=== PATIENT | male | born 1960 | race Caucasian/White ===

== ENCOUNTER 2022-09-18 15:47 | Inpatient (IN) | payer OTHER, SELFPAY ==
[2022-09-18 16:30] VITALS: BP 165/77; PULSE 84; RESP 18; TEMP 36.7; O2SAT 99; BMI 39.1
[2022-09-18 17:01] LABS: Glucose, Whole Blood 224 mg/dL (60-115)
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
[2022-09-18 20:08] LABS: Glucose, Whole Blood 232 mg/dL (60-115)
[2022-09-18] MEDS: oxyCODONE HCl Immed Release 5 MG TABLET 10 MG PO (20:22)
[2022-09-18] MEDS: Dextroamphetamine/Amphetamine XR 10 MG CAP.ER.24H 30 MG PO (20:22)
[2022-09-18] MEDS: clonazePAM 1 MG TABLET PO (20:23)
[2022-09-18] MEDS: Gabapentin 400 MG CAPSULE 800 MG PO (20:23)
[2022-09-18] MEDS: DULoxetine HCl 60 MG CAPSULE.DR PO (20:23)
[2022-09-18] MEDS: Insulin Glargine,Hum.rec.anlog 100 UNIT/ML 10 ML VIAL 47 UNIT SUBCUT (20:25)
[2022-09-19] MEDS: oxyCODONE HCl Immed Release 5 MG TABLET 10 MG PO ×6 (00:36→22:09)
[2022-09-19 08:00] VITALS: BP 145/78; PULSE 83; RESP 18; TEMP 36.2; O2SAT 95
[2022-09-19 08:48] LABS: Alanine Aminotransferase 21 U/L (0-40); Albumin Level 3.7 g/dL (3.5-5.0); Alkaline Phosphatase 105 U/L (39-117); Anion Gap 12 (12-20); Aspartate Amino Transferase 14 U/L (5-37); Bilirubin Total 0.9 mg/dL (0.0-1.0); Blood Urea Nitrogen 12 mg/dL (9-16); Calcium 9.3 mg/dL (8.4-10.2); Carbon Dioxide 29 mmol/L (22-29); Chloride 103 mmol/L (96-108); Cholesterol 189 mg/dL; Creatinine Clr Calc Pharmacy 125.6; Estimated Glomerular Filt Rate > 60; Glucose Fasting 151 mg/dL (60-99); HDL Cholesterol 36 mg/dL; LDL Cholesterol Calculated 139 mg/dl; Potassium 4.2 mmol/L (3.3-5.1); Sodium 140 mmol/L (135-145); Total Protein 7.2 g/dL (6.5-8.0); Triglycerides 73 mg/dL
[2022-09-19] MEDS: Insulin Lispro 100 UNIT/ML 3 ML VIAL 16 UNIT SUBCUT ×3 (09:50→17:30)
[2022-09-19] MEDS: Insulin Glargine,Hum.rec.anlog 100 UNIT/ML 10 ML VIAL 47 UNIT SUBCUT ×2 (09:51→20:53)
[2022-09-19] MEDS: amLODIPine Besylate 10 MG TABLET PO (09:52)
[2022-09-19] MEDS: Dextroamphetamine/Amphetamine XR 10 MG CAP.ER.24H 30 MG PO (09:52)
[2022-09-19] MEDS: Gabapentin 400 MG CAPSULE 800 MG PO ×3 (09:52→20:54)
[2022-09-19] MEDS: lisinopriL 40 MG TABLET PO (09:52)
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
[2022-09-19] MEDS: clonazePAM 1 MG TABLET PO ×3 (11:26→20:55)
[2022-09-19] MEDS: Lidocaine 4 % Patch ADH..PATCH 2 PATCH TRANSDERMA (13:29)
[2022-09-19] MEDS: Acetaminophen 325 MG TABLET 650 MG PO ×3 (13:30→20:55)
--- NOTE | 2022-09-19 13:53 | HO.PM.IMCN ---
History of Present Illness Data of Consult Service Date: 09/19/22 Requesting physician: Zuleika Traylor Primary Care Provider: Unknown Physician HPI Reason for consult: medical H&P 62-year-old male with history hypertension, hyperlipidemia, insulin-dependent type 2 diabetes, diabetic polyneuropathy, osteoarthritis of the hips bilaterally, history of MRSA admitted to Psychiatry with consult placed to Hospital Medicine for medical H and P. He is reporting pain of the hips and knees bilaterally. He tells me he did have a fall down the stairs 2 weeks ago and fractured a rib and hit his face losing several teeth. He did have head CT performed which was negative per the patient and he did not lose consciousness. He is no other completely this time outside of his pain. Denies any alcohol use, illicit drug use, or cigarette smoking. Review of Systems Review of Systems: General: No fevers, malaise, unintentional weight loss HEENT: No blurred vision, diplopia. No sore throat, nasal congestion, rhinorrhea, sinus pain, ear pain Cardiovascular: No chest pain, palpitations, or leg edema Respiratory: No shortness of breath, wheezing, cough GI: No abdominal pain, nausea, vomiting, diarrhea, constipation, melena, hematochezia : No dysuria, hematuria, increased urinary frequency, decreased urinary output MSK: No myalgia, back pain. +pain b/l hips and knees Neuro: No headaches, weakness, paresthesias Skin: No rashes or lesions [facility] Medical History Diabetic polyneuropathy Hyperlipidemia Hypertension Insulin dependent type 2 diabetes mellitus Major depressive disorder Osteoarthritis of knees, bilateral Osteoarthritis, hip, bilateral Social History Household Members: Other Household Members Other:: Lives with 2 roommates Housing: Apartment Do you presently have visiting nurse or other home services: No Patient Tobacco Use Status: Never used Tobacco Use of substances other than those prescribed or required for medical reasons: Yes Substance Use Type: Marijuana Substance Use Type Other:: reports 2-3 puffs for chronic pain Substance Use Frequency: Occasionally Currently Displaying Signs/Symptoms of Drug Intoxication Withdrawal: No Any prior treatment program specific to substance use: No Advance Directives: No Advance Directives Information Provided: No Do you have thoughts of harming others: None Do you have a plan to hurt others: No Plan Recently lost weight without trying: No How much weight loss: Not applicable Eating poorly because of decreased appetite: No Nutrition screen score: 0 Nutrition Risks: No Nutritional Risk Poor oral hygiene: No Meds Allergies Allergy/AdvReac Type Severity Reaction Status Date / Time aspirin Allergy Unknown Verified 09/18/22 17:35 chlordiazepoxide Allergy Unknown Verified 09/18/22 17:35 hydrochlorothiazide Allergy Unknown Verified 09/18/22 17:35 latex Allergy Unknown Verified 09/18/22 17:35 NSAIDS (Non-Steroidal Allergy Unknown Verified 09/18/22 17:35 Anti-Inflamma shellfish derived Allergy Unknown Verified 09/18/22 17:35 tramadol Allergy Unknown Verified 09/18/22 17:35 Active Medications: Current Medications Acetaminophen (Acetaminophen 325 Mg Tablet) 650 mg PO QID [facility] Last Admin: 09/19/22 13:30 Dose: 650 mg Al Hydroxide/Mg Hydroxide (Magnesium Hydrox/Alum Hydrox 30 Ml Oral.Susp) 30 ml PO Q6H PRN PRN Reason: Heartburn/Nausea Amlodipine Besylate (Amlodipine Besylate 10 Mg Tablet) 10 mg PO DAILY [facility]; Protocol Last Admin: 09/19/22 09:52 Dose: 10 mg Amphetamine/Dextroamphetamine (Amphetamine Mixed Salts 10 Mg Tablet) 30 mg PO BID@0800,1400 [facility] Clonazepam (Clonazepam 1 Mg Tablet) 1 mg PO TID PRN PRN Reason: Anxiety Last Admin: 09/19/22 11:26 Dose: 1 mg Dextrose (Dextrose 50 % 25 Gm/50 Ml Syringe) 25 gm IVPUSH Q15M PRN; Protocol PRN Reason: per Hypoglycemia Standing Ord. Duloxetine HCl (Duloxetine Hcl 30 Mg Capsule.Dr) 90 mg PO BEDTIME ZAKIA Gabapentin (Gabapentin 400 Mg Capsule) 800 mg PO TID [facility] Last Admin: 09/19/22 09:52 Dose: 800 mg Glucose (Glucose Gel 15 Gm Gel..Gram.) 15 gm PO Q15M PRN; Protocol PRN Reason: per Hypoglycemia Standing Ord. Hydroxyzine HCl (Hydroxyzine Hcl 25 Mg Tablet) 25 mg PO Q6H PRN PRN Reason: Anxiety Insulin Glargine (Insulin Glargine,Hum.Rec.Anlog 100 Unit/Ml 10 Ml Vial) 47 unit SUBCUT BID [facility] Last Admin: 09/19/22 09:51 Dose: 47 unit Insulin Human Lispro (Insulin Lispro 100 Unit/Ml 3 Ml Vial) 16 unit SUBCUT TID@0730,1130,1630 [facility] Last Admin: 09/19/22 12:47 Dose: Not Given Lidocaine (Lidocaine 4 % Patch Adh..Patch) 2 patch TRANSDERMA DAILY [facility]; Protocol Last Admin: 09/19/22 13:29 Dose: 2 patch Lisinopril (Lisinopril 40 Mg Tablet) 40 mg PO DAILY [facility]; Protocol Last Admin: 09/19/22 09:52 Dose: 40 mg Magnesium Hydroxide (Milk Of Magnesia 30 Ml Oral.Susp) 30 ml PO DAILY PRN PRN Reason: Constipation Oxycodone HCl (Oxycodone Hcl Immed Release 5 Mg Tablet) 10 mg PO Q4H PRN PRN Reason: Pain, Mild (Pain Scale 1-3) Last Admin: 09/19/22 09:49 Dose: 10 mg Trazodone HCl (Trazodone Hcl 50 Mg Tablet) 50 mg PO BEDTIME MRX1 PRN PRN Reason: Insomnia Home Medications Medication Instructions Recorded Confirmed Last Taken Type amlodipine 10 mg tablet 10 mg PO QAM 09/18/22 09/18/22 Unknown History clonazepam 1 mg tablet 1 mg PO TID PRN anxiety 09/18/22 09/18/22 Unknown History dextroamphetamine-amphetamine 30 1 tab PO BID 09/18/22 09/18/22 Unknown History mg tablet duloxetine 60 mg capsule,delayed 60 mg PO BEDTIME 09/18/22 09/18/22 Unknown History release gabapentin 400 mg capsule 800 mg PO TID 09/18/22 09/18/22 Unknown History insulin glargine 100 unit/mL (3 47 unit subcut BID 09/18/22 09/18/22 Unknown History mL) subcutaneous pen (Lantus Solostar U-100 Insulin) insulin lispro 100 unit/mL 16 unit subcut TID 09/18/22 09/18/22 Unknown History subcutaneous solution lisinopril 40 mg tablet 40 mg PO DAILY 09/18/22 09/18/22 Unknown History oxycodone 10 mg tablet 10 mg PO Q4H PRN pain 09/18/22 09/18/22 Unknown History Physical Exam Vital Signs and Narrative: Vital Signs: Last Vital Signs Temp 97.1 F 09/19/22 08:00 Pulse 83 09/19/22 08:00 Resp 18 09/19/22 08:00 BP 145/78 H 09/19/22 08:00 Pulse Ox 95 09/19/22 08:00 O2 Del Method Room Air 09/19/22 08:00 BMI result Body Mass Index 39.1 Constitutional - Awake and Alert, No apparent distress Eyes - PERRLA, EOMI Cardiovascular - S1S2, RRR, No edema Respiratory - Normal lung expansion, Normal respiratory effort, No respiratory distress, CTA bilaterally Gastrointestinal - NT / ND; +BS; No rebound or guarding Extremities - no calf tenderness bilaterally, no swelling Musculoskeletal - Normal inspection, normal ROM Skin - Warm/Dry Neurological - Alert & oriented x3, CN II-XII in tact, 5/5 strength BUE and LLE, 3/5 strength RLE Psychological - Appropriate affect Results Labs 09/19/22 07:53 Labs: Laboratory Results - last 24 hr 09/18/22 09/18/22 09/19/22 16:57 20:05 07:43 Anion Gap Estim Creat Clear Calc Estimated GFR POC Glucose 224 H 232 H 162 H Fasting Glucose Calcium Total Bilirubin AST ALT Alkaline Phosphatase Total Protein Albumin Triglycerides Cholesterol LDL Cholesterol, Calc HDL Cholesterol 09/19/22 09/19/22 07:53 11:25 Anion Gap 12 Estim Creat Clear Calc 125.6 Estimated GFR > 60 POC Glucose 182 H Fasting Glucose 151 H Calcium 9.3 Total Bilirubin 0.9 AST 14 ALT 21 Alkaline Phosphatase 105 Total Protein 7.2 Albumin 3.7 Triglycerides 73 Cholesterol 189 LDL Cholesterol, Calc 139 HDL Cholesterol 36 Assessment and Plan (1) Routine medical exam: Status: Acute Plan 62-year-old male with history hypertension, hyperlipidemia, insulin-dependent type 2 diabetes, diabetic polyneuropathy, osteoarthritis of the hips bilaterally, history of MRSA admitted to Psychiatry with consult placed to Hospital Medicine for medical H and P. #MDD -plan per psychiatry #Osteoarthritis b/l knees, hips -tylenol prn, lidocaine patches prn -Continue home oxycodone -Outpt follow up as scheduled #Insulin dependent type 2 diabetes -Continue basal insulin, prandial insulin -POC glucose -Diabetic diet recommended #HTN -reasonably controlled -continue home meds #Diabetic polyneuropathy -continue gabapentin Thank you for allowing me to participate in this consult. Signing off at this time. Please do not hesitate to call for further questions. Time Spent With Patient Time: Total time managing care of this patient today ____ minutes.
[2022-09-19] MEDS: Amphetamine Mixed Salts 10 MG TABLET 30 MG PO (13:58)
[2022-09-19 18:00] VITALS: BP 152/72; PULSE 82; TEMP 36.2; O2SAT 96
[2022-09-19] MEDS: DULoxetine HCl 30 MG CAPSULE.DR 90 MG PO (20:54)
[2022-09-19] MEDS: diphenhydrAMINE HCL 25 MG CAPSULE 50 MG PO (20:55)
[2022-09-20] MEDS: oxyCODONE HCl Immed Release 5 MG TABLET 10 MG PO ×6 (02:04→22:52)
--- NOTE | 2022-09-20 08:53 | HO.PSYCHPN ---
Subjective Subjective Date of Service: 09/20/22 Reason For Visit: F33.2 /F12.20/F11.99/F13.99 Interim History: Pt to be seen by Dr. Ponce today. Diagnostics Vital Signs (24Hr): Vital Signs - 24 hr 09/19/22 18:00 Temperature 97.2 F Pulse Rate 82 Blood Pressure 152/72 H Pulse Oximetry 96 Oxygen Delivery Method Room Air BMI result Body Mass Index 39.1 Labs 09/19/22 07:53 Labs: Laboratory Results - last 48 hr 09/18/22 09/18/22 09/19/22 16:57 20:05 07:43 Sodium Potassium Chloride Carbon Dioxide Anion Gap BUN Creatinine Estim Creat Clear Calc Estimated GFR POC Glucose 224 H 232 H 162 H Fasting Glucose Calcium Total Bilirubin AST ALT Alkaline Phosphatase Total Protein Albumin Triglycerides Cholesterol LDL Cholesterol, Calc HDL Cholesterol 09/19/22 09/19/22 09/19/22 07:53 11:25 16:38 Sodium 140 Potassium 4.2 Chloride 103 Carbon Dioxide 29 Anion Gap 12 BUN 12 Creatinine 0.79 Estim Creat Clear Calc 125.6 Estimated GFR > 60 POC Glucose 182 H 185 H Fasting Glucose 151 H Calcium 9.3 Total Bilirubin 0.9 AST 14 ALT 21 Alkaline Phosphatase 105 Total Protein 7.2 Albumin 3.7 Triglycerides 73 Cholesterol 189 LDL Cholesterol, Calc 139 HDL Cholesterol 36 09/19/22 09/20/22 20:27 08:20 Sodium Potassium Chloride Carbon Dioxide Anion Gap BUN Creatinine Estim Creat Clear Calc Estimated GFR POC Glucose 222 H 188 H Fasting Glucose Calcium Total Bilirubin AST ALT Alkaline Phosphatase Total Protein Albumin Triglycerides Cholesterol LDL Cholesterol, Calc HDL Cholesterol Medications Medications Current Medications Acetaminophen (Acetaminophen 325 Mg Tablet) 650 mg PO QID [facility] Last Admin: 09/19/22 20:55 Dose: 650 mg Al Hydroxide/Mg Hydroxide (Magnesium Hydrox/Alum Hydrox 30 Ml Oral.Susp) 30 ml PO Q6H PRN PRN Reason: Heartburn/Nausea Amlodipine Besylate (Amlodipine Besylate 10 Mg Tablet) 10 mg PO DAILY [facility]; Protocol Last Admin: 09/19/22 09:52 Dose: 10 mg Amphetamine/Dextroamphetamine (Amphetamine Mixed Salts 10 Mg Tablet) 30 mg PO BID@0800,1400 [facility] Last Admin: 09/19/22 13:58 Dose: 30 mg Clonazepam (Clonazepam 1 Mg Tablet) 1 mg PO TID PRN PRN Reason: Anxiety Last Admin: 09/19/22 20:55 Dose: 1 mg Dextrose (Dextrose 50 % 25 Gm/50 Ml Syringe) 25 gm IVPUSH Q15M PRN; Protocol PRN Reason: per Hypoglycemia Standing Ord. Diphenhydramine HCl (Diphenhydramine Hcl 25 Mg Capsule) 50 mg PO BEDTIME [facility] Last Admin: 09/19/22 20:55 Dose: 50 mg Duloxetine HCl (Duloxetine Hcl 30 Mg Capsule.Dr) 90 mg PO BEDTIME [facility] Last Admin: 09/19/22 20:54 Dose: 90 mg Gabapentin (Gabapentin 400 Mg Capsule) 800 mg PO TID [facility] Last Admin: 09/19/22 20:54 Dose: 800 mg Glucose (Glucose Gel 15 Gm Gel..Gram.) 15 gm PO Q15M PRN; Protocol PRN Reason: per Hypoglycemia Standing Ord. Hydroxyzine HCl (Hydroxyzine Hcl 25 Mg Tablet) 25 mg PO Q6H PRN PRN Reason: Anxiety Insulin Glargine (Insulin Glargine,Hum.Rec.Anlog 100 Unit/Ml 10 Ml Vial) 47 unit SUBCUT BID [facility] Last Admin: 09/19/22 20:53 Dose: 47 unit Insulin Human Lispro (Insulin Lispro 100 Unit/Ml 3 Ml Vial) 16 unit SUBCUT TID@0730,1130,1630 [facility] Last Admin: 09/19/22 17:30 Dose: 16 unit Lidocaine (Lidocaine 4 % Patch Adh..Patch) 2 patch TRANSDERMA DAILY [facility]; Protocol Last Admin: 09/19/22 13:29 Dose: 2 patch Lisinopril (Lisinopril 40 Mg Tablet) 40 mg PO DAILY [facility]; Protocol Last Admin: 09/19/22 09:52 Dose: 40 mg Magnesium Hydroxide (Milk Of Magnesia 30 Ml Oral.Susp) 30 ml PO DAILY PRN PRN Reason: Constipation Oxycodone HCl (Oxycodone Hcl Immed Release 5 Mg Tablet) 10 mg PO Q4H PRN PRN Reason: Pain, Mild (Pain Scale 1-3) Last Admin: 09/20/22 07:00 Dose: 10 mg Trazodone HCl (Trazodone Hcl 50 Mg Tablet) 50 mg PO BEDTIME MRX1 PRN PRN Reason: Insomnia Allergies Allergies Allergy/AdvReac Type Severity Reaction Status Date / Time aspirin Allergy Unknown Verified 09/18/22 17:35 chlordiazepoxide Allergy Unknown Verified 09/18/22 17:35 hydrochlorothiazide Allergy Unknown Verified 09/18/22 17:35 latex Allergy Unknown Verified 09/18/22 17:35 NSAIDS (Non-Steroidal Allergy Unknown Verified 09/18/22 17:35 Anti-Inflamma shellfish derived Allergy Unknown Verified 09/18/22 17:35 tramadol Allergy Unknown Verified 09/18/22 17:35 Assessment & Plan Assessment & Plan (1) Major depressive disorder: Status: Acute Code(s): F32.9 - Major depressive disorder, single episode, unspecified (2) PTSD (post-traumatic stress disorder): Status: Acute Code(s): F43.10 - Post-traumatic stress disorder, unspecified (3) Routine medical exam: Status: Acute Code(s): Z00.00 - Encounter for general adult medical examination without abnormal findings Plan Overall presents with major depressive disorder and PTSD. Also comorbid insulin-dependent diabetes. Significant suicide gestures recently, all be that on 09/05/2022 having spent the last 2 weeks in [facility] ED pending inpatient psych bed. Reports has been some improvement in depression with Cymbalta 60 mg. That being said will increase to 90 mg as still appears depressed with some psychomotor retardation. If there continues to be concerns regarding depression, psychomotor retardation or suicidality may be appropriate candidate for lithium or ECT. Patient is averse to both his treatment options. Will continue Klonopin, gabapentin, Adderall and oxycodone as per [facility] and transfer paperwork. Benadryl at nighttime for sleep. Will also place Pt consult regarding mobility and potential walking aids. Will also order lidocaine patch for right hip and right groin area which are his main sources of pain and also scheduled Tylenol which he takes at home and finds this helpful. Reports having right hip replacement surgery schedule 10/07/2022 and looking forward to same. Reason for continued inpatient stay Substantial Risk for: harm to self Time Spent With Patient Time: Total time managing care of this patient today ____ minutes.
[2022-09-20] MEDS: Insulin Glargine,Hum.rec.anlog 100 UNIT/ML 10 ML VIAL 47 UNIT SUBCUT ×2 (08:59→20:11)
[2022-09-20] MEDS: clonazePAM 1 MG TABLET PO ×3 (09:00→22:05)
[2022-09-20] MEDS: lisinopriL 40 MG TABLET PO (09:00)
[2022-09-20] MEDS: Gabapentin 400 MG CAPSULE 800 MG PO ×3 (09:00→20:08)
[2022-09-20] MEDS: Acetaminophen 325 MG TABLET 650 MG PO ×4 (09:01→20:08)
[2022-09-20] MEDS: Amphetamine Mixed Salts 10 MG TABLET 30 MG PO ×2 (09:01→13:34)
[2022-09-20] MEDS: amLODIPine Besylate 10 MG TABLET PO (09:01)
[2022-09-20 09:06] VITALS: BP 160/77; PULSE 90; RESP 18; TEMP 36.9
[2022-09-20] MEDS: Lidocaine 4 % Patch ADH..PATCH 2 PATCH TRANSDERMA (11:01)
--- NOTE | 2022-09-20 12:17 | HO.PSYCHPN ---
Subjective Subjective Date of Service: 09/20/22 Reason For Visit: F33.2 /F12.20/F11.99/F13.99 Subjective Notes: Conditional Voluntary Interim History: Met with patient. Discussed with Nursing. 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 Since then transferred to the general adult unit. This was in the context of his age, cognitive functioning and also the geriatric unit reminding him of visiting his mom and in inpatient settings. Today he reports feeling more comfortable on the general adult unit. Slept very well last night. Pain slightly better. Yesterday was difficult also because it was his girlfriend's birthday. Continues to deny SI. We discussed blood sugar management and blood sugar levels yesterday and this morning was in 180s after breakfast and did not receive scheduled insulin at mealtimes. We therefore discussed discontinuing scheduled mealtime insulins and utilizing sliding scale and figuring out insulin needs from same. Patient felt more comfortable with this plan. Medication Compliance: Yes Side effects from medications: No Attending Groups: Intermittent Review of Systems Acute medical concerns: No Review of Systems Review of Systems Pain under better control. Will adjust insulin Mental Status Exam Mental Status Exam Narrative: Pleasant. Engaged. Appropriately dressed. slightly less painful gait. Alert and oriented. There is psychomotor retardation evident. Endorses depression. Denies SI. Denies HI. No psychosis. Insight and judgment fair Diagnostics Vital Signs (24Hr): Vital Signs - 24 hr 09/19/22 18:00 09/20/22 09:06 Temperature 97.2 F 98.5 F Pulse Rate 82 90 Respiratory Rate 18 Blood Pressure 152/72 H 160/77 H Pulse Oximetry 96 Oxygen Delivery Method Room Air Room Air BMI result Body Mass Index 39.1 Labs 09/19/22 07:53 Labs: Laboratory Results - last 48 hr 09/18/22 09/18/22 09/19/22 16:57 20:05 07:43 Sodium Potassium Chloride Carbon Dioxide Anion Gap BUN Creatinine Estim Creat Clear Calc Estimated GFR POC Glucose 224 H 232 H 162 H Fasting Glucose Calcium Total Bilirubin AST ALT Alkaline Phosphatase Total Protein Albumin Triglycerides Cholesterol LDL Cholesterol, Calc HDL Cholesterol 09/19/22 09/19/22 09/19/22 07:53 11:25 16:38 Sodium 140 Potassium 4.2 Chloride 103 Carbon Dioxide 29 Anion Gap 12 BUN 12 Creatinine 0.79 Estim Creat Clear Calc 125.6 Estimated GFR > 60 POC Glucose 182 H 185 H Fasting Glucose 151 H Calcium 9.3 Total Bilirubin 0.9 AST 14 ALT 21 Alkaline Phosphatase 105 Total Protein 7.2 Albumin 3.7 Triglycerides 73 Cholesterol 189 LDL Cholesterol, Calc 139 HDL Cholesterol 36 09/19/22 09/20/22 09/20/22 20:27 08:20 11:33 Sodium Potassium Chloride Carbon Dioxide Anion Gap BUN Creatinine Estim Creat Clear Calc Estimated GFR POC Glucose 222 H 188 H 289 H Fasting Glucose Calcium Total Bilirubin AST ALT Alkaline Phosphatase Total Protein Albumin Triglycerides Cholesterol LDL Cholesterol, Calc HDL Cholesterol Medications Medications Current Medications Acetaminophen (Acetaminophen 325 Mg Tablet) 650 mg PO QID [facility] Last Admin: 09/20/22 09:01 Dose: 650 mg Al Hydroxide/Mg Hydroxide (Magnesium Hydrox/Alum Hydrox 30 Ml Oral.Susp) 30 ml PO Q6H PRN PRN Reason: Heartburn/Nausea Amlodipine Besylate (Amlodipine Besylate 10 Mg Tablet) 10 mg PO DAILY [facility]; Protocol Last Admin: 09/20/22 09:01 Dose: 10 mg Amphetamine/Dextroamphetamine (Amphetamine Mixed Salts 10 Mg Tablet) 30 mg PO BID@0800,1400 [facility] Last Admin: 09/20/22 09:01 Dose: 30 mg Clonazepam (Clonazepam 1 Mg Tablet) 1 mg PO TID PRN PRN Reason: Anxiety Last Admin: 09/20/22 09:00 Dose: 1 mg Dextrose (Dextrose 50 % 25 Gm/50 Ml Syringe) 25 gm IVPUSH Q15M PRN; Protocol PRN Reason: per Hypoglycemia Standing Ord. Diphenhydramine HCl (Diphenhydramine Hcl 25 Mg Capsule) 50 mg PO BEDTIME [facility] Last Admin: 09/19/22 20:55 Dose: 50 mg Duloxetine HCl (Duloxetine Hcl 30 Mg Capsule.Dr) 90 mg PO BEDTIME [facility] Last Admin: 09/19/22 20:54 Dose: 90 mg Gabapentin (Gabapentin 400 Mg Capsule) 800 mg PO TID [facility] Last Admin: 09/20/22 09:00 Dose: 800 mg Glucose (Glucose Gel 15 Gm Gel..Gram.) 15 gm PO Q15M PRN; Protocol PRN Reason: per Hypoglycemia Standing Ord. Hydroxyzine HCl (Hydroxyzine Hcl 25 Mg Tablet) 25 mg PO Q6H PRN PRN Reason: Anxiety Insulin Glargine (Insulin Glargine,Hum.Rec.Anlog 100 Unit/Ml 10 Ml Vial) 47 unit SUBCUT BID [facility] Last Admin: 09/20/22 08:59 Dose: 47 unit Insulin Human Lispro (Insulin Lispro 100 Unit/Ml 3 Ml Vial) 16 unit SUBCUT TID@0730,1130,1630 [facility] Last Admin: 09/19/22 17:30 Dose: 16 unit Lidocaine (Lidocaine 4 % Patch Adh..Patch) 2 patch TRANSDERMA DAILY [facility]; Protocol Last Admin: 09/20/22 11:01 Dose: 2 patch Lisinopril (Lisinopril 40 Mg Tablet) 40 mg PO DAILY [facility]; Protocol Last Admin: 09/20/22 09:00 Dose: 40 mg Magnesium Hydroxide (Milk Of Magnesia 30 Ml Oral.Susp) 30 ml PO DAILY PRN PRN Reason: Constipation Oxycodone HCl (Oxycodone Hcl Immed Release 5 Mg Tablet) 10 mg PO Q4H PRN PRN Reason: Pain, Mild (Pain Scale 1-3) Last Admin: 09/20/22 11:02 Dose: 10 mg Trazodone HCl (Trazodone Hcl 50 Mg Tablet) 50 mg PO BEDTIME MRX1 PRN PRN Reason: Insomnia Allergies Allergies Allergy/AdvReac Type Severity Reaction Status Date / Time aspirin Allergy Unknown Verified 09/18/22 17:35 chlordiazepoxide Allergy Unknown Verified 09/18/22 17:35 hydrochlorothiazide Allergy Unknown Verified 09/18/22 17:35 latex Allergy Unknown Verified 09/18/22 17:35 NSAIDS (Non-Steroidal Allergy Unknown Verified 09/18/22 17:35 Anti-Inflamma shellfish derived Allergy Unknown Verified 09/18/22 17:35 tramadol Allergy Unknown Verified 09/18/22 17:35 Assessment & Plan Assessment & Plan (1) Major depressive disorder: Status: Acute Code(s): F32.9 - Major depressive disorder, single episode, unspecified (2) PTSD (post-traumatic stress disorder): Status: Acute Code(s): F43.10 - Post-traumatic stress disorder, unspecified (3) Routine medical exam: Status: Acute Code(s): Z00.00 - Encounter for general adult medical examination without abnormal findings Plan Overall presents with major depressive disorder and PTSD. Also comorbid insulin-dependent diabetes. Significant suicide gestures recently, all be that on 09/05/2022 having spent the last 2 weeks in [facility] ED pending inpatient psych bed. Reports has been some improvement in depression with Cymbalta 60 mg. That being said will increase to 90 mg as still appears depressed with some psychomotor retardation. If there continues to be concerns regarding depression, psychomotor retardation or suicidality may be appropriate candidate for lithium or ECT. Patient is averse to both his treatment options. Will continue Klonopin, gabapentin, Adderall and oxycodone as per [facility] and transfer paperwork. Benadryl at nighttime for sleep. Will also place Pt consult regarding mobility and potential walking aids. Will also order lidocaine patch for right hip and right groin area which are his main sources of pain and also scheduled Tylenol which he takes at home and finds this helpful. Reports having right hip replacement surgery schedule 10/07/2022 and looking forward to same. 09/20/22: change mealtime insulin to sliding scale rather than scheduled. Reason for continued inpatient stay Substantial Risk for: harm to self Time Spent With Patient Time: Total time managing care of this patient today ____ minutes.
[2022-09-20 18:00] VITALS: BP 148/78; PULSE 68; RESP 18; TEMP 36.6; O2SAT 97
[2022-09-20] MEDS: DULoxetine HCl 30 MG CAPSULE.DR 90 MG PO (20:08)
[2022-09-20] MEDS: diphenhydrAMINE HCL 25 MG CAPSULE 50 MG PO (22:15)
[2022-09-21] MEDS: oxyCODONE HCl Immed Release 5 MG TABLET 10 MG PO ×5 (03:19→20:44)
[2022-09-21 08:05] VITALS: BP 170/87; PULSE 73; RESP 16; TEMP 35.9; O2SAT 96
[2022-09-21] MEDS: Lidocaine 4 % Patch ADH..PATCH 2 PATCH TRANSDERMA (08:12)
[2022-09-21] MEDS: Insulin Glargine,Hum.rec.anlog 100 UNIT/ML 10 ML VIAL 47 UNIT SUBCUT ×2 (08:14→20:43)
[2022-09-21] MEDS: clonazePAM 1 MG TABLET PO ×3 (08:16→20:43)
[2022-09-21] MEDS: Acetaminophen 325 MG TABLET 650 MG PO ×4 (08:16→20:42)
[2022-09-21] MEDS: amLODIPine Besylate 10 MG TABLET PO (08:16)
[2022-09-21] MEDS: Gabapentin 400 MG CAPSULE 800 MG PO ×3 (08:16→20:43)
[2022-09-21] MEDS: lisinopriL 40 MG TABLET PO (08:16)
[2022-09-21] MEDS: Amphetamine Mixed Salts 10 MG TABLET 30 MG PO ×2 (08:16→13:17)
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
[2022-09-21 15:31] VITALS: BP 170/87; PULSE 73; O2SAT 96
[2022-09-21 17:56] VITALS: BP 152/71; PULSE 85; TEMP 36
[2022-09-21] MEDS: DULoxetine HCl 30 MG CAPSULE.DR 90 MG PO (20:43)
[2022-09-21] MEDS: diphenhydrAMINE HCL 25 MG CAPSULE 50 MG PO (21:20)
[2022-09-22] MEDS: oxyCODONE HCl Immed Release 5 MG TABLET 10 MG PO ×6 (00:40→23:02)
[2022-09-22] MEDS: lisinopriL 40 MG TABLET PO (08:35)
[2022-09-22] MEDS: amLODIPine Besylate 10 MG TABLET PO (08:35)
[2022-09-22] MEDS: Acetaminophen 325 MG TABLET 650 MG PO ×4 (08:35→20:40)
[2022-09-22] MEDS: clonazePAM 1 MG TABLET PO ×3 (08:35→23:02)
[2022-09-22] MEDS: Gabapentin 400 MG CAPSULE 800 MG PO ×3 (08:36→20:40)
[2022-09-22] MEDS: Insulin Glargine,Hum.rec.anlog 100 UNIT/ML 10 ML VIAL 47 UNIT SUBCUT ×2 (08:36→20:42)
[2022-09-22 09:16] VITALS: BP 130/60; PULSE 72; RESP 16; O2SAT 97
[2022-09-22] MEDS: Amphetamine Mixed Salts 10 MG TABLET 30 MG PO ×2 (10:48→13:20)
--- NOTE | 2022-09-22 11:45 | HO.PSYCHPN ---
Subjective Subjective Date of Service: 09/22/22 Reason For Visit: F33.2 /F12.20/F11.99/F13.99 Interim History: Met with pt and discussed with RN. Patient reports he has been feeling OK . He reports My depression is better and my pain is worse. Tolerating the increase in Cymbalta. Denies SI/HI. Denies AVH. Seen interacting in the dining area. Side effects from medications: No Review of Systems Review of Systems Pain under better control. Will adjust insulin Mental Status Exam Mental Status Exam Narrative: Pleasant. Engaged. Appropriately dressed. slightly less painful gait. Alert and oriented. There is psychomotor retardation evident. Endorses depression. Denies SI. Denies HI. No psychosis. Insight and judgment fair Diagnostics Vital Signs (24Hr): Vital Signs - 24 hr 09/21/22 15:31 09/21/22 17:56 09/22/22 09:16 Temperature 96.8 F Pulse Rate 73 85 72 Respiratory Rate 16 Blood Pressure 170/87 H 152/71 H 130/60 Pulse Oximetry 96 97 Oxygen Delivery Method Room Air BMI result Body Mass Index 39.1 Labs 09/19/22 07:53 Labs: Laboratory Results - last 48 hr 09/20/22 09/20/22 09/20/22 17:46 20:30 22:08 POC Glucose 222 H 306 H 339 H 09/21/22 09/21/22 09/21/22 07:54 11:49 16:41 POC Glucose 250 H 291 H 239 H 09/21/22 09/22/22 20:16 08:05 POC Glucose 158 H 224 H Medications Medications Current Medications Acetaminophen (Acetaminophen 325 Mg Tablet) 650 mg PO QID [facility] Last Admin: 09/22/22 08:35 Dose: 650 mg Al Hydroxide/Mg Hydroxide (Magnesium Hydrox/Alum Hydrox 30 Ml Oral.Susp) 30 ml PO Q6H PRN PRN Reason: Heartburn/Nausea Amlodipine Besylate (Amlodipine Besylate 10 Mg Tablet) 10 mg PO DAILY [facility]; Protocol Last Admin: 09/22/22 08:35 Dose: 10 mg Amphetamine/Dextroamphetamine (Amphetamine Mixed Salts 10 Mg Tablet) 30 mg PO BID@0800,1400 [facility] Last Admin: 09/22/22 10:48 Dose: 30 mg Clonazepam (Clonazepam 1 Mg Tablet) 1 mg PO TID PRN PRN Reason: Anxiety Last Admin: 09/22/22 08:35 Dose: 1 mg Dextrose (Dextrose 50 % 25 Gm/50 Ml Syringe) 25 gm IVPUSH Q15M PRN; Protocol PRN Reason: per Hypoglycemia Standing Ord. Dextrose (Dextrose 50 % 25 Gm/50 Ml Syringe) 25 gm IVPUSH Q15M PRN; Protocol PRN Reason: per Hypoglycemia Standing Ord. Diphenhydramine HCl (Diphenhydramine Hcl 25 Mg Capsule) 50 mg PO BEDTIME [facility] Last Admin: 09/21/22 21:20 Dose: 50 mg Duloxetine HCl (Duloxetine Hcl 30 Mg Capsule.Dr) 90 mg PO BEDTIME [facility] Last Admin: 09/21/22 20:43 Dose: 90 mg Gabapentin (Gabapentin 400 Mg Capsule) 800 mg PO TID [facility] Last Admin: 09/22/22 08:36 Dose: 800 mg Glucose (Glucose Gel 15 Gm Gel..Gram.) 15 gm PO Q15M PRN; Protocol PRN Reason: per Hypoglycemia Standing Ord. Hydroxyzine HCl (Hydroxyzine Hcl 25 Mg Tablet) 25 mg PO Q6H PRN PRN Reason: Anxiety Insulin Glargine (Insulin Glargine,Hum.Rec.Anlog 100 Unit/Ml 10 Ml Vial) 47 unit SUBCUT BID [facility] Last Admin: 09/22/22 08:36 Dose: 47 unit Insulin Human Lispro (Insulin Lispro 100 Unit/Ml 3 Ml Vial) 12 unit SUBCUT TIDAC [facility] Last Admin: 09/22/22 08:36 Dose: 12 unit Lidocaine (Lidocaine 4 % Patch Adh..Patch) 2 patch TRANSDERMA DAILY [facility]; Protocol Last Admin: 09/21/22 08:12 Dose: 2 patch Lisinopril (Lisinopril 40 Mg Tablet) 40 mg PO DAILY [facility]; Protocol Last Admin: 09/22/22 08:35 Dose: 40 mg Magnesium Hydroxide (Milk Of Magnesia 30 Ml Oral.Susp) 30 ml PO DAILY PRN PRN Reason: Constipation Oxycodone HCl (Oxycodone Hcl Immed Release 5 Mg Tablet) 10 mg PO Q4H PRN PRN Reason: Pain, Mild (Pain Scale 1-3) Last Admin: 09/22/22 10:48 Dose: 10 mg Trazodone HCl (Trazodone Hcl 50 Mg Tablet) 50 mg PO BEDTIME MRX1 PRN PRN Reason: Insomnia Allergies Allergies Allergy/AdvReac Type Severity Reaction Status Date / Time aspirin Allergy Unknown Verified 09/18/22 17:35 chlordiazepoxide Allergy Unknown Verified 09/18/22 17:35 hydrochlorothiazide Allergy Unknown Verified 09/18/22 17:35 latex Allergy Unknown Verified 09/18/22 17:35 NSAIDS (Non-Steroidal Allergy Unknown Verified 09/18/22 17:35 Anti-Inflamma shellfish derived Allergy Unknown Verified 09/18/22 17:35 tramadol Allergy Unknown Verified 09/18/22 17:35 Assessment & Plan Assessment & Plan (1) Major depressive disorder: Status: Acute Code(s): F32.9 - Major depressive disorder, single episode, unspecified (2) PTSD (post-traumatic stress disorder): Status: Acute Code(s): F43.10 - Post-traumatic stress disorder, unspecified (3) Routine medical exam: Status: Acute Code(s): Z00.00 - Encounter for general adult medical examination without abnormal findings Plan Overall presents with major depressive disorder and PTSD. Also comorbid insulin-dependent diabetes. Significant suicide gestures recently, all be that on 09/05/2022 having spent the last 2 weeks in [facility] ED pending inpatient psych bed. Reports has been some improvement in depression with Cymbalta 60 mg. That being said will increase to 90 mg as still appears depressed with some psychomotor retardation. If there continues to be concerns regarding depression, psychomotor retardation or suicidality may be appropriate candidate for lithium or ECT. Patient is averse to both his treatment options. Will continue Klonopin, gabapentin, Adderall and oxycodone as per [place] [facility] and transfer paperwork. Benadryl at nighttime for sleep. Will also place Pt consult regarding mobility and potential walking aids. Will also order lidocaine patch for right hip and right groin area which are his main sources of pain and also scheduled Tylenol which he takes at home and finds this helpful. Reports having right hip replacement surgery schedule 10/07/2022 and looking forward to same. 09/21/22- Change sliding scale insulin to 12 u tid ac per pt request-reports this is what he takes at home. 09/22: Continue treatment plan. Reason for continued inpatient stay Substantial Risk for: harm to self, inability to function and med/psych decompensation Time Spent With Patient Time: Total time managing care of this patient today ____ minutes.
[2022-09-22] MEDS: Lidocaine 4 % Patch ADH..PATCH 2 PATCH TRANSDERMA (14:57)
[2022-09-22 19:40] VITALS: BP 122/54; PULSE 95; RESP 18; TEMP 36.4; O2SAT 97
[2022-09-22] MEDS: DULoxetine HCl 30 MG CAPSULE.DR 90 MG PO (20:40)
[2022-09-22] MEDS: diphenhydrAMINE HCL 25 MG CAPSULE 50 MG PO (20:40)
[2022-09-23] MEDS: oxyCODONE HCl Immed Release 5 MG TABLET 10 MG PO ×5 (03:48→20:41)
[2022-09-23 08:00] VITALS: BP 158/88; PULSE 76; RESP 18; TEMP 36.3; O2SAT 96
[2022-09-23] MEDS: amLODIPine Besylate 10 MG TABLET PO (08:25)
[2022-09-23] MEDS: Lidocaine 4 % Patch ADH..PATCH 2 PATCH TRANSDERMA (08:25)
[2022-09-23] MEDS: Amphetamine Mixed Salts 10 MG TABLET 30 MG PO ×2 (08:25→13:21)
[2022-09-23] MEDS: lisinopriL 40 MG TABLET PO (08:26)
[2022-09-23] MEDS: Gabapentin 400 MG CAPSULE 800 MG PO ×3 (08:26→20:36)
[2022-09-23] MEDS: Insulin Glargine,Hum.rec.anlog 100 UNIT/ML 10 ML VIAL 47 UNIT SUBCUT ×2 (08:26→20:37)
[2022-09-23] MEDS: Acetaminophen 325 MG TABLET 650 MG PO ×4 (08:26→20:36)
[2022-09-23] MEDS: clonazePAM 1 MG TABLET PO ×2 (10:04→20:36)
--- NOTE | 2022-09-23 16:49 | HO.PSYCHPN ---
Subjective Subjective Date of Service: 09/23/22 Reason For Visit: F33.2 /F12.20/F11.99/F13.99 Subjective Notes: Conditional Voluntary Healthcare Proxy: No Guardianship: No Medical Problems Affecting Mental Status: No Interim History: Pt reports feeling prepared for discharge. Brother Nigel plans to come to pt's home to assist him ([phone]). Pt denies SI, HI plan or intent. He is looking forward to surgical appt 10/07 with [facility] to plan his hip repair. PCP prescribes meds, they request we send in a week of refills. They will meet with him on 09/30. (Elsy Parada, RN [phone]) Medication Compliance: Yes Side effects from medications: No Attending Groups: Yes Review of Systems Acute medical concerns: No Medical Review of Systems: unchanged Mental Status Exam Mental Status Exam Patient Appearance: Appropriate Patient Orientation: Person, Place, Time and Situation Level of Consciousness: Alert Patient Behavior: Appropriate, Talkative, Cooperative and Good Eye Contact Mood Description: Depressed Affect Description: Flat Patient Cognition Impaired: No Ability to Follow Directions: Good Speech Pattern: Spontaneous Speech Memory Description: Intact Hallucinations: None Delusions: Not Present Thought Process: Rumination Thought Content: positive for Intact and positive for Suicidal Ideation (denies) Judgement: Good Diagnostics Vital Signs (24Hr): Vital Signs - 24 hr 09/22/22 19:40 09/23/22 08:00 Temperature 97.6 F 97.4 F Pulse Rate 95 76 Respiratory Rate 18 18 Blood Pressure 122/54 L 158/88 H Pulse Oximetry 97 96 Oxygen Delivery Method Room Air Room Air BMI result Body Mass Index 39.1 Labs 09/19/22 07:53 Labs: Laboratory Results - last 48 hr 09/21/22 09/22/22 09/22/22 20:16 08:05 12:05 POC Glucose 158 H 224 H 328 H 09/22/22 09/22/22 09/23/22 17:22 20:18 08:24 POC Glucose 255 H 335 H 191 H 09/23/22 09/23/22 11:15 16:39 POC Glucose 231 H 178 H Medications Medications Current Medications Acetaminophen (Acetaminophen 325 Mg Tablet) 650 mg PO QID ZAKIA Last Admin: 09/23/22 16:35 Dose: 650 mg Al Hydroxide/Mg Hydroxide (Magnesium Hydrox/Alum Hydrox 30 Ml Oral.Susp) 30 ml PO Q6H PRN PRN Reason: Heartburn/Nausea Amlodipine Besylate (Amlodipine Besylate 10 Mg Tablet) 10 mg PO DAILY [facility]; Protocol Last Admin: 09/23/22 08:25 Dose: 10 mg Amphetamine/Dextroamphetamine (Amphetamine Mixed Salts 10 Mg Tablet) 30 mg PO BID@0800,1400 [facility] Last Admin: 09/23/22 13:21 Dose: 30 mg Clonazepam (Clonazepam 1 Mg Tablet) 1 mg PO TID PRN PRN Reason: Anxiety Last Admin: 09/23/22 10:04 Dose: 1 mg Dextrose (Dextrose 50 % 25 Gm/50 Ml Syringe) 25 gm IVPUSH Q15M PRN; Protocol PRN Reason: per Hypoglycemia Standing Ord. Dextrose (Dextrose 50 % 25 Gm/50 Ml Syringe) 25 gm IVPUSH Q15M PRN; Protocol PRN Reason: per Hypoglycemia Standing Ord. Diphenhydramine HCl (Diphenhydramine Hcl 25 Mg Capsule) 50 mg PO BEDTIME [facility] Last Admin: 09/22/22 20:40 Dose: 50 mg Duloxetine HCl (Duloxetine Hcl 30 Mg Capsule.Dr) 90 mg PO BEDTIME [facility] Last Admin: 09/22/22 20:40 Dose: 90 mg Gabapentin (Gabapentin 400 Mg Capsule) 800 mg PO TID [facility] Last Admin: 09/23/22 15:17 Dose: 800 mg Glucose (Glucose Gel 15 Gm Gel..Gram.) 15 gm PO Q15M PRN; Protocol PRN Reason: per Hypoglycemia Standing Ord. Hydroxyzine HCl (Hydroxyzine Hcl 25 Mg Tablet) 25 mg PO Q6H PRN PRN Reason: Anxiety Insulin Glargine (Insulin Glargine,Hum.Rec.Anlog 100 Unit/Ml 10 Ml Vial) 47 unit SUBCUT BID [facility] Last Admin: 09/23/22 08:26 Dose: 47 unit Insulin Human Lispro (Insulin Lispro 100 Unit/Ml 3 Ml Vial) 12 unit SUBCUT TIDAC [facility] Last Admin: 09/23/22 13:06 Dose: 12 unit Lidocaine (Lidocaine 4 % Patch Adh..Patch) 2 patch TRANSDERMA DAILY [facility]; Protocol Last Admin: 09/23/22 08:25 Dose: 2 patch Lisinopril (Lisinopril 40 Mg Tablet) 40 mg PO DAILY [facility]; Protocol Last Admin: 09/23/22 08:26 Dose: 40 mg Magnesium Hydroxide (Milk Of Magnesia 30 Ml Oral.Susp) 30 ml PO DAILY PRN PRN Reason: Constipation Oxycodone HCl (Oxycodone Hcl Immed Release 5 Mg Tablet) 10 mg PO Q4H PRN PRN Reason: Pain, Mild (Pain Scale 1-3) Last Admin: 09/23/22 16:35 Dose: 10 mg Trazodone HCl (Trazodone Hcl 50 Mg Tablet) 50 mg PO BEDTIME MRX1 PRN PRN Reason: Insomnia Allergies Allergies Allergy/AdvReac Type Severity Reaction Status Date / Time aspirin Allergy Unknown Verified 09/18/22 17:35 chlordiazepoxide Allergy Unknown Verified 09/18/22 17:35 hydrochlorothiazide Allergy Unknown Verified 09/18/22 17:35 latex Allergy Unknown Verified 09/18/22 17:35 NSAIDS (Non-Steroidal Allergy Unknown Verified 09/18/22 17:35 Anti-Inflamma shellfish derived Allergy Unknown Verified 09/18/22 17:35 tramadol Allergy Unknown Verified 09/18/22 17:35 Assessment & Plan Assessment & Plan (1) Major depressive disorder: Status: Acute Code(s): F32.9 - Major depressive disorder, single episode, unspecified (2) PTSD (post-traumatic stress disorder): Status: Acute Code(s): F43.10 - Post-traumatic stress disorder, unspecified (3) Routine medical exam: Status: Acute Code(s): Z00.00 - Encounter for general adult medical examination without abnormal findings Plan Overall presents with major depressive disorder and PTSD. Also comorbid insulin-dependent diabetes. Significant suicide gestures recently, all be that on 09/05/2022 having spent the last 2 weeks in [facility] ED pending inpatient psych bed. Reports has been some improvement in depression with Cymbalta 60 mg. That being said will increase to 90 mg as still appears depressed with some psychomotor retardation. If there continues to be concerns regarding depression, psychomotor retardation or suicidality may be appropriate candidate for lithium or ECT. Patient is averse to both his treatment options. Will continue Klonopin, gabapentin, Adderall and oxycodone as per [place] [facility] and transfer paperwork. Benadryl at nighttime for sleep. Will also place Pt consult regarding mobility and potential walking aids. Will also order lidocaine patch for right hip and right groin area which are his main sources of pain and also scheduled Tylenol which he takes at home and finds this helpful. Reports having right hip replacement surgery schedule 10/07/2022 and looking forward to same. 09/21/22- Change sliding scale insulin to 12 u tid ac per pt request-reports this is what he takes at home. 09/22: Continue treatment plan. 09/23/22: Continue current regime and plan of care. Discharge 09/24/22. Patient educated on: therapeutic strategies Informed Consent: understands Reason for continued inpatient stay Substantial Risk for: rapid decompensation Time Spent With Patient Time: Total time managing care of this patient today ____ minutes.
[2022-09-23 18:00] VITALS: BP 155/72; PULSE 78; TEMP 36.3
[2022-09-23] MEDS: DULoxetine HCl 30 MG CAPSULE.DR 90 MG PO (20:36)
[2022-09-23] MEDS: diphenhydrAMINE HCL 25 MG CAPSULE 50 MG PO (20:36)
[2022-09-24] MEDS: oxyCODONE HCl Immed Release 5 MG TABLET 10 MG PO ×4 (00:15→12:59)
[2022-09-24] MEDS: Amphetamine Mixed Salts 10 MG TABLET 30 MG PO ×2 (08:31→13:00)
[2022-09-24] MEDS: Acetaminophen 325 MG TABLET 650 MG PO ×2 (08:31→12:38)
[2022-09-24] MEDS: lisinopriL 40 MG TABLET PO (08:31)
[2022-09-24] MEDS: amLODIPine Besylate 10 MG TABLET PO (08:32)
[2022-09-24] MEDS: Gabapentin 400 MG CAPSULE 800 MG PO (08:32)
[2022-09-24] MEDS: clonazePAM 1 MG TABLET PO ×2 (08:32→13:00)
[2022-09-24] MEDS: Insulin Glargine,Hum.rec.anlog 100 UNIT/ML 10 ML VIAL 47 UNIT SUBCUT (08:33)
[2022-09-24 08:35] VITALS: BP 154/86; PULSE 85; RESP 18; TEMP 35.8; O2SAT 97
[2022-09-24] MEDS: Lidocaine 4 % Patch ADH..PATCH 2 PATCH TRANSDERMA (12:13)
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
== END 2022-09-24 13:06 | disposition home or self-care (01) | DRG 751 ==
LOC: HO.PGERI 15:52 → HO.PM5 09-19 16:52
PROVIDERS: Admitting Provider Psychiatry & Neurology Psychiatry; Visit Provider Clinical Nurse Specialist Psychiatric/Mental Health, Adult
DX: F33.9 Major depressive disorder, recurrent, unspecified (principal); E11.42 Type 2 diabetes mellitus with diabetic polyneuropathy; E78.5 Hyperlipidemia, unspecified; M15.9 Polyosteoarthritis, unspecified; F43.10 Post-traumatic stress disorder, unspecified; Z91.040 Latex allergy status; Z91.51 Personal history of suicidal behavior; Z79.4 Long term (current) use of insulin; Z79.899 Other long term (current) drug therapy
CPT/HCPCS: 36415; 80053; 80061; 82947; 97161

== ENCOUNTER → 2022-09-18 15:47 | Outpatient (BNV) | payer OTHER, SELFPAY | PROVIDERS: Admitting Provider Psychiatry & Neurology Psychiatry; Visit Provider Psychiatry & Neurology Psychiatry | DX: F33.2 Major depressive disorder, recurrent severe without psychotic features (principal); F43.11 Post-traumatic stress disorder, acute | CPT/HCPCS: 99231; 99232; 99233; 99499 ==